=== PATIENT | female | born 1965 | race African-American/Black ===

== ENCOUNTER 2017-03-05 15:58 | Emergency (ER) | payer MEDICARE ==
[~2017-03-05] VITALS: Ht 154.9 cm; Wt 81.6 kg
[~2017-03-05 15:58] MED LIST: ALBU2.5V14 IH; CELE200C PO; COLE1TAB PO; FLUT10.6 IH; FLUT16SP2 NS; HYDR12.53 PO; HYDR200T PO; LORA10TA3 PO; OXYC1TAB8 PO; PREG225C PO; PROAIR HFA8.5 GM IH; PSYL1WAF3 PO; ROPI0.252 PO; SODI500S4 PO; SULF500T7 PO; TIZA4TAB PO; TOPI50TA8 PO; TRAM50TA PO
[2017-03-05] MEDS ORDERED: IV NORMAL SALINE 1000ML BAG 1,000 ML IV SCH (16:59)
[2017-03-05 17:37] LABS: BASO % 1 % (0-3); EOS % 1 % (0-3); LYMPH # 1.7 x10^3/uL (1.0-4.8); LYMPH % 30 % (24-48); MEAN CORPUSCULAR HEMOGLOBIN 25 pg (25-35); MEAN CORPUSCULAR HGB CONC 32 g/dL (31-37); MEAN CORPUSCULAR VOLUME 77 fL (79-100); MONO % 8 % (0-9); NEUT % 60 % (31-73); PLATELET COUNT 150 x10^3/uL (140-400); RED CELL DISTRIBUTION WIDTH 15.1 % (11.5-14.5); WHITE BLOOD COUNT 5.9 x10^3/uL (4.0-11.0)
--- NOTE | 2017-03-05 17:41 | PHYS DOC ---
Past Medical History Past Medical History: Asthma, Bronchitis, Fibromyalgia, GERD Additional Past Medical Histor: narcolepsy, bursitis IN BILATERAL HIPS Past Surgical History: Colectomy, Hip Replacement, Hysterectomy Additional Past Surgical Histo: colon resection x 2, back surgery, right ankle ORIF w/ removal hardware Alcohol Use: None Drug Use: None Adult General Chief Complaint Chief Complaint: DIZZY/LIGHT HEADED HPI HPI Patient is a 51 year old female who presents ambulatory to the ED with the complaint of dizziness and left arm tingling. Patient has had dizziness for a few days. It's worse with standing. It is fairly constant. She's also had some tingling of her left arm. No chest pain. She states she's been drinking plenty of water. She doesn't believe she would be dehydrated. She's had no nausea, vomiting. She does have loose stools because she does not have a colon. Her small intestine is connected to her rectum. This is due to colon removal surgery in 2002 in 2007 which was done because her colon didn't work ever since she was a baby. She has not had colon cancer. She denies bloody stools. Patient has a history of fibromyalgia, narcolepsy, no cardiac history. She uses CPAP for her narcolepsy. She is disabled due to her fibromyalgia. Review of Systems Review of Systems Constitutional: Denies fever or chills [] Eyes: Denies change in visual acuity, redness, or eye pain [] HENT: Denies nasal congestion or sore throat [] Respiratory: Denies cough or shortness of breath [] Cardiovascular: Denies chest pain, see left arm symptoms in history of present illness GI: Denies abdominal pain, nausea, vomiting, bloody stools or diarrhea however chronically has loose stools due to having no: : Denies dysuria or hematuria [] Musculoskeletal: Denies back pain or joint pain [] Integument: Denies rash or skin lesions [] Neurologic: Denies headache, focal weakness or sensory changes [] Current Medications Current Medications Current Medications Medications (Trade) Dose Ordered Sig/Minh Start Time Stop Time Status Last Admin Dose Admin Sodium Chloride 1,000 ml @ 1,000 mls/hr Q1H 03/05/17 16:59 03/05/17 17:58 DC 03/05/17 17:33 1,000 MLS/HR Allergies Allergies Allergies Coded Allergies Type Severity Reaction Last Updated Verified Iodinated Contrast Media - Oral and Allergy Intermediate Unknown 01/10/16 Yes Penicillins Allergy Intermediate Rash 01/10/16 Yes codeine Allergy Intermediate Rash 01/10/16 Yes methylprednisolone Allergy Intermediate Itching 01/10/16 Yes Physical Exam Physical Exam Constitutional: Well developed, well nourished, no acute distress, non-toxic appearance. Alert, mentating normally, vital signs stable. HENT: Normocephalic, atraumatic, bilateral external ears normal, nose normal. [ ] Eyes: conjunctiva normal, no discharge. [] Neck: Normal range of motion, no stridor. [] Cardiovascular:Heart rate regular rhythm, no murmur , nontachycardiac Lungs & Thorax: Bilateral breath sounds clear to auscultation [] Abdomen: Bowel sounds normal, soft, no tenderness, no masses, no pulsatile masses. [] Skin: Warm, dry, no erythema, no rash. [] Extremities: No tenderness, no cyanosis, no clubbing, ROM intact, no edema. [] Neurologic: Alert and oriented X 3, normal motor function, normal sensory function, no focal deficits noted. [] Current Patient Data Vital Signs Vital Signs Date Time Temp Pulse Resp B/P (MAP) Pulse Ox O2 Delivery O2 Flow Rate FiO2 03/05/17 18:27 61 20 121/79 (93) 99 Room Air 03/05/17 16:34 98.7 98.7 Lab Values Laboratory Tests Test 03/05/17 17:17 White Blood Count 5.9 x10^3/uL (4.0-11.0) Red Blood Count 4.40 x10^6/uL (3.50-5.40) Hemoglobin 11.0 g/dL (12.0-15.5) L Hematocrit 34.0 % (36.0-47.0) L Mean Corpuscular Volume 77 fL (79-100) L Mean Corpuscular Hemoglobin 25 pg (25-35) Mean Corpuscular Hemoglobin Concent 32 g/dL (31-37) Red Cell Distribution Width 15.1 % (11.5-14.5) H Platelet Count 150 x10^3/uL (140-400) Neutrophils (%) (Auto) 60 % (31-73) Lymphocytes (%) (Auto) 30 % (24-48) Monocytes (%) (Auto) 8 % (0-9) Eosinophils (%) (Auto) 1 % (0-3) Basophils (%) (Auto) 1 % (0-3) Neutrophils # (Auto) 3.5 x10^3uL (1.8-7.7) Lymphocytes # (Auto) 1.7 x10^3/uL (1.0-4.8) Monocytes # (Auto) 0.5 x10^3/uL (0.0-1.1) Eosinophils # (Auto) 0.1 x10^3/uL (0.0-0.7) Basophils # (Auto) 0.0 x10^3/uL (0.0-0.2) Sodium Level 142 mmol/L (136-145) Potassium Level 4.5 mmol/L (3.5-5.1) Chloride Level 107 mmol/L (98-107) Carbon Dioxide Level 26 mmol/L (21-32) Anion Gap 9 (6-14) Blood Urea Nitrogen 12 mg/dL (7-20) Creatinine 1.1 mg/dL (0.6-1.0) H Estimated GFR (Cockcroft-Gault) 63.9 BUN/Creatinine Ratio 11 (6-20) Glucose Level 100 mg/dL (70-99) H Calcium Level 9.5 mg/dL (8.5-10.1) Total Bilirubin 0.2 mg/dL (0.2-1.0) Aspartate Amino Transferase (AST) 18 U/L (15-37) Alanine Aminotransferase (ALT) 22 U/L (14-59) Alkaline Phosphatase 108 U/L (46-116) Troponin I Quantitative < 0.017 ng/mL (0.000-0.055) Total Protein 7.6 g/dL (6.4-8.2) Albumin 3.6 g/dL (3.4-5.0) Albumin/Globulin Ratio 0.9 (1.0-1.7) L Laboratory Tests 03/05/17 17:17 Laboratory Tests 03/05/17 17:17 EKG EKG 12-lead EKG read by me. Sinus rhythm. Heart rate 62. There are no acute ST or T wave changes indicative of ischemia or infarction. No STEMI. 1644 [] Radiology/Procedures Radiology/Procedures One view portable chest x-ray read by me. Heart size is normal. Lung bruno are clear. No acute cardiopulmonary abnormality. [] Course & Med Decision Making Course & Med Decision Making Pertinent Labs and Imaging studies reviewed. (See chart for details) 51-year-old female with a history of narcolepsy, fibromyalgia, also a total colectomy so her stools are always loose, presents with several days of lightheaded type dizziness and newly some tingling of her left arm. No chest pain. We will check some labs, EKG, and give her some fluids. She is agreeable to that plan. Patient rested comfortably and remained stable in the ED. She got a liter of IV fluids. She visited with the family member at the bedside. Labs, chest x-ray, EKG unremarkable. Her complaints are nonspecific and I believe she is stable for discharge. See instructions for plan. [] Dragon Disclaimer Dragon Disclaimer This electronic medical record was generated, in whole or in part, using a voice recognition dictation system. Departure Departure Impression: Primary Impression: Dehydration Additional Impression: Left arm numbness Disposition: 01 HOME, SELF-CARE Condition: STABLE Referrals: JERRI LIM (PCP) Patient Instructions: Dehydration, Adult, [id number] Additional Instructions: Today in the ER, tests did not show any serious cause of your symptoms. If your left arm numbness continues, follow up with your doctor. Be sure you're drinking plenty of fluids to stay hydrated especially in the heat. Problem Qualifiers ROQUE VELIZ MD Mar 05, 2017 17:41
[2017-03-05 17:47] LABS: CALCIUM 9.5 mg/dL (8.5-10.1); CREATININE 1.1 mg/dL (0.6-1.0); GFR 63.9; POTASSIUM 4.5 mmol/L (3.5-5.1)
[2017-03-05 17:53] LABS: ALBUMIN 3.6 g/dL (3.4-5.0); ALBUMIN/GLOBULIN RATIO 0.9 (1.0-1.7); TOTAL BILIRUBIN 0.2 mg/dL (0.2-1.0); TOTAL PROTEIN 7.6 g/dL (6.4-8.2)
[2017-03-05 18:27] VITALS: BP 121/79
--- NOTE | 2017-03-06 00:39 | EKG ---
[facility] [address] [place] [address] Test Date: 2017-03-05 Test Time: 16:44:06 Pat Name: MANJINDER OKEEFE Department: Room: Gender: F Installation Specialist: : [id number] Requested By: ROQUE VELIZ Order Number: [id number] Reading MD: Albert Hoyos Measurements Intervals [place] Rate: 62 P: 54 [place]: 136 QRS: 2 QRSD: 76 T: 32 QT: 422 QTc: 431 Interpretive Statements SINUS RHYTHM T ABNORMALITY IN ANTERIOR LEADS ABNORMAL ECG RI6.01 Compared to ECG 06/14/2016 14:04:37 T-wave abnormality now present Right-axis deviation no longer present Myocardial infarct finding no longer present Electronically Signed On 03-06-2017 17:03:16 CDT by Albert Hoyos
--- NOTE | 2017-03-06 08:11 | RAD ---
Portable chest, 03/05/2017: History: Chest pain, arm tingling Comparison is made to a study from 06/13/2016. The heart is at the upper limits of normal in size. The pulmonary vascularity is normal. No pulmonary infiltrates are seen. There is no evidence of pleural fluid. IMPRESSION: No acute cardiopulmonary abnormality is detected.
== END 2017-03-05 18:55 | disposition home or self-care (01) ==
LOC: ER 15:58
DX: E86.0 Dehydration (principal); R20.0 Anesthesia of skin; J45.909 Unspecified asthma, uncomplicated; K21.9 Gastro-esophageal reflux disease without esophagitis; M79.7 Fibromyalgia; Z90.710 Acquired absence of both cervix and uterus; Z98.890 Other specified postprocedural states; Z96.649 Presence of unspecified artificial hip joint; Z88.0 Allergy status to penicillin; Z88.5 Allergy status to narcotic agent; Z91.041 Radiographic dye allergy status; Z88.8 Allergy status to other drugs, medicaments and biological substances
CPT/HCPCS: 36415; 71010; 80053; 84484; 85027; 93005; 96360; 99285; J7030

== ENCOUNTER → 2017-07-20 | Outpatient (CLI) | payer MEDICARE ==
[~2017-07-20] MED LIST changes: +METAMUCIL FIBE1 EACH PO; -PSYL1WAF3 PO
--- NOTE | 2017-07-20 13:56 | KCIC ---
MRI Cervical Spine Without Contrast History: Stenosis, bilateral upper extremity numbness in recent months Technique: Multiplanar, multi sequential noncontrast MR imaging was performed of the cervical spine. Comparison: None Findings: Cervical cord caliber is within normal limits without convincing focal signal abnormality. No significant abnormality of the cervical medullary junction. Cervical vertebral body stature is preserved. There is no significant marrow edema. Intervertebral disc spaces are relatively maintained. AP alignment is adequate. C2-C3: Spinal canal and the neural foramina are adequate. C3-C4: Neural foramina and spinal canal are adequate. C4-C5: Spinal canal and neural foramina are adequate. C5-C6: Spinal canal and neural foramina are adequate. C6-C7: Spinal canal and neural foramina are adequate. C7-T1: Neural foramina and spinal canal are adequate. Impression: 1. There is no significant cervical spinal stenosis or neural foramina compromise. Electronically signed by: Joey Montiel MD (07/20/2017 1:53 PM) [email or web address]
--- NOTE | 2017-07-20 14:05 | KCIC ---
MRI Lumbar Spine without contrast History: Stenosis, previous surgery, left leg pain and numbness Technique: Multiplanar, multi sequential noncontrast MR imaging was performed of the lumbar spine. Contrast: None Comparison: 05/11/2014 Findings: Vertebral body stature and AP alignment are unchanged, within normal limits. There is again mild to moderate degenerative disc disease greater posteriorly at L4-5. There is nonspecific edema of the posterior subcutaneous fat of the lower back. Conus terminates at T12. There is no significant marrow edema. Barely included, there is T2 hyperintense lesion of the visualized right kidney as seen on sagittal images up to 3.3 cm, likely cyst. L1-L2: There is again very shallow posterior bulge/protrusion. Spinal canal and neural foramina are adequate. L2-L3: Spinal canal and neural foramina are adequate. There is mild buckling of the ligamentum flavum and facet degenerative change. L3-L4: Spinal canal and neural foramina are adequate. There is mild facet hypertrophic change and buckling of the ligamentum flavum. L4-L5: There is again right laminectomy defect. There is left facet hypertrophic change. There is again some signal change along the posterior annular margin which may be in part from fibrosis. However there is somewhat more prominent signal abnormality in the inferior right neural foramen probably due to component of superimposed protrusion/contained extrusion up to 4 mm AP by 6 mm CC. There is slightly increased [id number] narrowing of the inferior right neural foramen, left neural foramen adequate. There is similar mild narrowing of the far lateral recesses. L5-S1: Spinal canal and neural foramina are adequate. Impression: 1. Comparing with the 2013 exam, there is somewhat more prominent signal abnormality in the inferior right neural foramen which may be due to component of protrusion/contained extrusion, slightly increased mild to moderate narrowing of the right neural foramen. There is again degenerative disc disease at L4-5. There is no new significant lumbar spinal stenosis, mild narrowing of the far lateral recesses at L4-5 as seen previously. Electronically signed by: Joey Montiel MD (07/20/2017 2:01 PM) [facility]
== END | disposition home or self-care (01) ==
LOC: KCIC MRI 12:27
PROVIDERS: ATTEND Neurological Surgery
DX: M48.02 Spinal stenosis, cervical region (principal); M51.36 Other intervertebral disc degeneration, lumbar region; R20.0 Anesthesia of skin
CPT/HCPCS: 72141; 72148

== ENCOUNTER → 2018-05-08 | Outpatient (CLI) | payer MEDICARE ==
[~2018-05-08] MED LIST changes: -HYDR200T PO; +HYDR200T71 PO; -ROPI0.252 PO; +ROPI0.254 PO
--- NOTE | 2018-05-08 11:18 | KCIC ---
MR of the left hip Indication: Left hip pain, chronic. Technique: Standard multiplanar sequences are obtained. Findings: Artifact: No significant image degradation. Bones: No bone lesion, acute fracture or acute bone marrow edema. No femoral head osteonecrosis. Effusion: No significant effusion Joint: No advanced primary osteoarthritis. Labrum: No evidence of labral tear or para labral cyst Gluteus minimus tendon: Intact Gluteus medius tendon: Intact Hamstring tendon: Intact Iliopsoas tendon: Intact Rectus femoris tendon attachment:Intact Soft tissue:No significant acute findings. Coronal survey STIR sequence inclusive of the contralateral hip demonstrates a right hip replacement with metal artifact. Impression:No acute findings or evidence of internal derangement of the left hip. Electronically signed by: Bayron Crabtree MD (05/08/2018 11:14 AM) [facility]
== END | disposition home or self-care (01) ==
LOC: KCIC MRI 09:11
PROVIDERS: ATTEND Anesthesiology Pain Medicine
DX: M25.552 Pain in left hip (principal)
CPT/HCPCS: 73721

== ENCOUNTER 2018-09-27 19:29 | Emergency (ER) | payer MEDICARE ==
[~2018-09-27] VITALS: Ht 154.9 cm; Wt 97.5 kg
[~2018-09-27 19:29] MED LIST changes: +ALBU2.5V8 IH; -HYDR12.53 PO; +HYDR12.575 PO; -PROAIR HFA8.5 GM IH
[2018-09-27] MEDS ORDERED: MECLIZINE HCL 12.5 MG TABLET. PO ONE (20:15)
[2018-09-27] MEDS ORDERED: ONDANSETRON PF 4 MG/2 ML VIAL. IV ONE (20:15)
[2018-09-27] MEDS ORDERED: IV NORMAL SALINE 1000ML BAG 1,000 ML IV ONE (20:15)
[2018-09-27 20:24] LABS: BASO % 1 % (0-3); EOS # 0.1 x10^3/uL (0.0-0.7); EOS % 1 % (0-3); HEMATOCRIT 35.8 % (36.0-47.0); HEMOGLOBIN 11.3 g/dL (12.0-15.5); LYMPH # 1.8 x10^3/uL (1.0-4.8); LYMPH % 25 % (24-48); MEAN CORPUSCULAR HEMOGLOBIN 27 pg (25-35); MEAN CORPUSCULAR HGB CONC 32 g/dL (31-37); MEAN CORPUSCULAR VOLUME 84 fL (79-100); MONO # 0.5 x10^3/uL (0.0-1.1); MONO % 7 % (0-9); NEUT # 4.8 x10^3uL (1.8-7.7); NEUT % 67 % (31-73); PLATELET COUNT 171 x10^3/uL (140-400); RED BLOOD COUNT 4.27 x10^6/uL (3.50-5.40); RED CELL DISTRIBUTION WIDTH 14.4 % (11.5-14.5); WHITE BLOOD COUNT 7.2 x10^3/uL (4.0-11.0)
[2018-09-27 20:26] LABS: BILIRUBIN,URINE NEGATIVE (NEG); CLARITY,URINE CLEAR; COLOR,URINE YELLOW; NITRITE,URINE NEGATIVE (NEG); PROTEIN,URINE NEGATIVE (NEG-TRACE); UROBILINOGEN,URINE 0.2 mg/dL (0.2 mg/dL)
[2018-09-27 20:29] LABS: SQUAMOUS EPITHELIAL CELL,UR MOD /LPF
[2018-09-27 20:30] LABS: BACTERIA,URINE MANY /HPF (0-FEW); RBC,URINE 0 /HPF (0-2); WBC,URINE OCC /HPF (0-4)
[2018-09-27 20:31] LABS: AMPHETAMINE/METHAMPHETAMINE NEG (NEG); BARBITURATES NEG (NEG); BENZODIAZEPINES NEG (NEG); CANNABINOIDS NEG (NEG); COCAINE NEG (NEG); METHADONE NEG (NEG); OPIATES NEG (NEG); PHENCYCLIDINE NEG (NEG)
[2018-09-27 20:33] LABS: PROTHROMBIN TIME PATIENT 13.6 SEC (11.7-14.0)
[2018-09-27 20:36] LABS: CALCIUM 9.1 mg/dL (8.5-10.1); CREATININE 1.2 mg/dL (0.6-1.0); GFR 57.3
[2018-09-27 20:47] LABS: INFLUENZA A PATIENT NEGATIVE (NEGATIVE); INFLUENZA B PATIENT NEGATIVE (NEGATIVE)
[2018-09-27 20:48] LABS: ALBUMIN 3.5 g/dL (3.4-5.0); ALBUMIN/GLOBULIN RATIO 0.6 (1.0-1.7); MAGNESIUM 1.9 mg/dL (1.8-2.4); TOTAL BILIRUBIN 0.2 mg/dL (0.2-1.0); TOTAL PROTEIN 8.9 g/dL (6.4-8.2)
--- NOTE | 2018-09-27 23:29 | RAD ---
PQRS Compliance Statement: One or more of the following individualized dose reduction techniques were utilized for this examination: 1. Automated exposure control 2. Adjustment of the mA and/or kV according to patient size 3. Use of iterative reconstruction technique CT head without contrast 09/27/2018 9:45 PM INDICATION: Dizziness COMPARISON: None available TECHNIQUE: Multiple axial CT images of the head were obtained from skull base through the vertex without intravenous contrast. FINDINGS: Head: Ventricles, sulci and basal cisterns are within normal limits. There is no hydrocephalus. Jules-white matter differentiation is normal. There is no acute intracranial hemorrhage. There is no mass, mass effect or midline shift. Posterior fossa is normal in appearance. Visualized portions of the orbits are normal. Paranasal sinuses are well aerated. Mastoid air cells are well aerated. Scalp and calvaria are normal. IMPRESSION: No acute intracranial hemorrhage. Electronically signed by: Tawana Brennan MD (09/27/2018 11:26 PM) [facility]
[2018-09-28 00:27] VITALS: BP 111/70
--- NOTE | 2018-09-28 00:33 | PHYS DOC ---
Past Medical History Past Medical History: Asthma, Bronchitis, Fibromyalgia, GERD Additional Past Medical Histor: narcolepsy, bursitis IN BILATERAL HIPS Past Surgical History: Colectomy, Hip Replacement, Hysterectomy Additional Past Surgical Histo: colon resection x 2, back surgery, right ankle ORIF w/ removal hardware Alcohol Use: None Drug Use: None Adult General Chief Complaint Chief Complaint: DIZZY/LIGHT HEADED HPI HPI Patient is a 53 year old female with hx of fibromyalgia, GERD, who presents with dizziness, chills, and numbness to fingers bilaterally, symptoms since Sunday which is almost a week ago. Patient denies anything specifically exacerbating or relieving her dizziness. She states the dizziness is intermittent. She states the numbness and tingling to the fingers is also intermittent. Denies any cough or congestion. Denies any headache. Denies any chest pain or shortness of breath. Review of Systems Review of Systems Constitutional: Denies fever or chills [] Eyes: Denies change in visual acuity, redness, or eye pain [] HENT: Denies nasal congestion or sore throat [] Respiratory: Denies cough or shortness of breath [] Cardiovascular: No additional information not addressed in HPI [] GI: Denies abdominal pain, nausea, vomiting, bloody stools or diarrhea [] : Denies dysuria or hematuria [] Musculoskeletal: Denies back pain or joint pain [] Integument: Denies rash or skin lesions [] Neurologic: Denies headache, focal weakness or sensory changes [] Endocrine: Denies polyuria or polydipsia [] All other systems were reviewed and found to be within normal limits, except as documented in this note. Current Medications Current Medications Current Medications Medications (Trade) Dose Ordered Sig/Minh Start Time Stop Time Status Last Admin Dose Admin Meclizine HCl (Antivert) 25 mg 1X ONCE 09/27/18 20:15 09/27/18 20:16 DC 09/27/18 21:03 25 MG Ondansetron HCl (Zofran) 4 mg 1X ONCE 09/27/18 20:15 09/27/18 20:16 DC 09/27/18 21:03 4 MG Sodium Chloride 1,000 ml @ 1,000 mls/hr 1X ONCE 09/27/18 20:15 09/27/18 21:14 DC 09/27/18 21:04 1,000 MLS/HR Allergies Allergies Allergies Coded Allergies Type Severity Reaction Last Updated Verified Iodinated Contrast- Oral and IV Dye Allergy Intermediate Unknown 01/10/16 Yes Penicillins Allergy Intermediate Rash 01/10/16 Yes codeine Allergy Intermediate Rash 01/10/16 Yes methylprednisolone Allergy Intermediate Itching 01/10/16 Yes Physical Exam Physical Exam Constitutional: Well developed, well nourished, no acute distress, non-toxic appearance. [] HENT: Normocephalic, atraumatic, bilateral external ears normal, oropharynx moist, no oral exudates, nose normal. [] Eyes: PERRLA, EOMI, conjunctiva normal, no discharge. [] Neck: Normal range of motion, no tenderness, supple, no stridor. [] Cardiovascular:Heart rate regular rhythm, no murmur [] Lungs & Thorax: Bilateral breath sounds clear to auscultation [] Abdomen: Bowel sounds normal, soft, no tenderness, no masses, no pulsatile masses. [] Skin: Warm, dry, no erythema, no rash. [] Back: No tenderness, no CVA tenderness. [] Extremities: No tenderness, no cyanosis, no clubbing, ROM intact, no edema. [] Neurologic: Alert and oriented X 3, normal motor function, normal sensory function, no focal deficits noted. [] Psychologic: Affect normal, judgement normal, mood normal. [] Current Patient Data Vital Signs Vital Signs Date Time Temp Pulse Resp B/P (MAP) Pulse Ox O2 Delivery O2 Flow Rate FiO2 09/28/18 00:27 78 98 09/27/18 19:35 97.4 22 134/86 (102) Room Air 97.4 Lab Values Laboratory Tests Test 09/27/18 19:35 09/27/18 19:49 09/27/18 20:05 09/27/18 20:10 Urine Collection Type Unknown Urine Color Yellow Urine Clarity Clear Urine pH 6.0 Urine Specific [place] <=1.005 Urine Protein Negative mg/dL (NEG-TRACE) Urine Glucose (UA) Negative mg/dL (NEG) Urine Ketones (Stick) Negative mg/dL (NEG) Urine Blood Negative (NEG) Urine Nitrite Negative (NEG) Urine Bilirubin Negative (NEG) Urine Urobilinogen Dipstick 0.2 mg/dL (0.2 mg/dL) Urine Leukocyte Esterase Trace (NEG) Urine RBC 0 /HPF (0-2) Urine WBC Occ /HPF (0-4) Urine Squamous Epithelial Cells Mod /LPF Urine Bacteria Many /HPF (0-FEW) Urine Opiates Screen Neg (NEG) Urine Methadone Screen Neg (NEG) Urine Barbiturates Neg (NEG) Urine Phencyclidine Screen Neg (NEG) Urine Amphetamine/Methamphetamine Neg (NEG) Urine Benzodiazepines Screen Neg (NEG) Urine Cocaine Screen Neg (NEG) Urine Cannabinoids Screen Neg (NEG) Urine Ethyl Alcohol Neg (NEG) POC Urine HCG, Qualitative Hcg negative (Negative) White Blood Count 7.2 x10^3/uL (4.0-11.0) Red Blood Count 4.27 x10^6/uL (3.50-5.40) Hemoglobin 11.3 g/dL (12.0-15.5) L Hematocrit 35.8 % (36.0-47.0) L Mean Corpuscular Volume 84 fL (79-100) Mean Corpuscular Hemoglobin 27 pg (25-35) Mean Corpuscular Hemoglobin Concent 32 g/dL (31-37) Red Cell Distribution Width 14.4 % (11.5-14.5) Platelet Count 171 x10^3/uL (140-400) Neutrophils (%) (Auto) 67 % (31-73) Lymphocytes (%) (Auto) 25 % (24-48) Monocytes (%) (Auto) 7 % (0-9) Eosinophils (%) (Auto) 1 % (0-3) Basophils (%) (Auto) 1 % (0-3) Neutrophils # (Auto) 4.8 x10^3uL (1.8-7.7) Lymphocytes # (Auto) 1.8 x10^3/uL (1.0-4.8) Monocytes # (Auto) 0.5 x10^3/uL (0.0-1.1) Eosinophils # (Auto) 0.1 x10^3/uL (0.0-0.7) Basophils # (Auto) 0.0 x10^3/uL (0.0-0.2) Prothrombin Time 13.6 SEC (11.7-14.0) Prothrombin Time INR 1.1 (0.8-1.1) Sodium Level 139 mmol/L (136-145) Potassium Level 4.0 mmol/L (3.5-5.1) Chloride Level 101 mmol/L (98-107) Carbon Dioxide Level 28 mmol/L (21-32) Anion Gap 10 (6-14) Blood Urea Nitrogen 12 mg/dL (7-20) Creatinine 1.2 mg/dL (0.6-1.0) H Estimated GFR (Cockcroft-Gault) 57.3 BUN/Creatinine Ratio 10 (6-20) Glucose Level 111 mg/dL (70-99) H Calcium Level 9.1 mg/dL (8.5-10.1) Magnesium Level 1.9 mg/dL (1.8-2.4) Total Bilirubin 0.2 mg/dL (0.2-1.0) Aspartate Amino Transferase (AST) 74 U/L (15-37) H Alanine Aminotransferase (ALT) 137 U/L (14-59) H Alkaline Phosphatase 126 U/L (46-116) H Creatine Kinase 135 U/L (26-192) Creatine Kinase MB (Mass) 0.5 ng/mL (0.0-3.6) Creatine Kinase MB Relative Index 0.4 % (0-4) Troponin I Quantitative < 0.017 ng/mL (0.000-0.055) AG-Pen-U-Type Natriuretic Peptide 20 pg/mL (0-124) Total Protein 8.9 g/dL (6.4-8.2) H Albumin 3.5 g/dL (3.4-5.0) Albumin/Globulin Ratio 0.6 (1.0-1.7) L Lipase 153 U/L (73-393) Thyroid Stimulating Hormone (TSH) 2.735 uIU/mL (0.358-3.74) Influenza Type A Antigen Negative (NEGATIVE) Influenza Type B Antigen Negative (NEGATIVE) Laboratory Tests 09/27/18 20:05 Laboratory Tests 09/27/18 20:05 EKG EKG [] Radiology/Procedures Radiology/Procedures [] Course & Med Decision Making Course & Med Decision Making Pertinent Labs and Imaging studies reviewed. (See chart for details) This is a 53-year-old female patient presenting to the ED today with dizziness, numbness to the fingers bilaterally and chills. Patient's workup is negative, she was given IV fluids, meclizine, she is up ambulating with no difficulties, symptoms of subsided. Discharged with instructions to follow-up PCP and neurologist next week. Dragon Disclaimer Dragon Disclaimer This electronic medical record was generated, in whole or in part, using a voice recognition dictation system. Departure Departure Impression: Primary Impression: Dizziness Disposition: 01 HOME, SELF-CARE Condition: STABLE Referrals: JERRI LIM (PCP) follow up next week Patient Instructions: Dizziness, Paresthesia Additional Instructions: You were seen for dizziness. Please follow up with your doctor next week. Come back to the ED at any point symptoms worsen. Scripts Meclizine Hcl (MECLIZINE HCL) 25 Mg Tablet 1 TAB PO TID, #20 TAB Prov: NAYAN CHERRY APRN 09/28/18 NAYAN CHERRY APRN Sep 28, 2018 00:33
[2018-09-28] MEDS ORDERED: MECL25TA3 PO (01:12)
--- NOTE | 2018-09-28 07:42 | RAD ---
PROCEDURE: PORTABLE CHEST 1V CLINICAL INDICATION: Dizzy COMPARISON: None FINDINGS: No pneumothorax identified. Cardiac and mediastinal contours unremarkable. No pulmonary consolidation or acute airspace disease. No acute osseous abnormalities identified. IMPRESSION: No pulmonary consolidation or acute airspace disease. Electronically signed by: Sedrick Cotton DO (09/28/2018 7:39 AM) [facility]
--- NOTE | 2018-09-28 14:49 | EKG ---
[facility] [address] [place] [address] Test Date: 2018-09-27 Test Time: 21:11:39 Pat Name: MANJINDER OKEEFE Department: Room: Gender: F Pouncer Machine: : [id number] Requested By: NAYAN CHERRY Order Number: [id number] Reading MD: Frankie Resendiz Measurements Intervals [place] Rate: 80 P: 29 [place]: 140 QRS: 0 QRSD: 74 T: 31 QT: 378 QTc: 440 Interpretive Statements SINUS RHYTHM LEFTWARD AXIS Electronically Signed On 10-08-2018 10:28:09 [employer] by Frankie Resendiz
== END 2018-09-28 01:20 | disposition home or self-care (01) ==
LOC: ER 19:29
DX: R42 Dizziness and giddiness (principal); R20.0 Anesthesia of skin; K21.9 Gastro-esophageal reflux disease without esophagitis; J45.909 Unspecified asthma, uncomplicated; Z90.710 Acquired absence of both cervix and uterus; Z90.49 Acquired absence of other specified parts of digestive tract; Z88.0 Allergy status to penicillin; Z88.5 Allergy status to narcotic agent; Z91.041 Radiographic dye allergy status
CPT/HCPCS: 36415; 70450; 71045; 80053; 80307; 81001; 81025; 82553; 83690; 83735; 83880; 84443; 84484; 85025; 85610; 87086; 87804; 93005; 96361; 96374; 99285; J2405; J7030; J8597; 99284-25

== ENCOUNTER → 2021-01-27 | Outpatient (CLI) | payer MEDICARE ==
[~2021-01-27] MED LIST changes: +GADOTERATE 7.5 MMOL/15ML VIAL. IVP ONE; +MECL-75 PO; -TIZA4TAB PO; +TIZA4TAB2 PO
--- NOTE | 2021-01-27 10:04 | KCIC ---
EXAM: Cervical spine MRI without contrast. HISTORY: Cervical radiculopathy. TECHNIQUE: Multiplanar, multisequence magnetic resonance imaging of the cervical spine was performed without contrast. COMPARISON: 07/20/2017. FINDINGS: There is no listhesis. The vertebral bodies are normal in height. There is no fracture or s uspicious osseous lesion. No spinal cord lesion is seen. The skull base and posterior fossa are unrem arkable. There is no significant foraminal or central canal stenosis. IMPRESSION: No acute finding or significant foraminal or central canal stenosis. Electronically signed by: Danae Garcia MD (01/27/2021 10:01 AM) [id number]
--- NOTE | 2021-01-27 10:46 | KCIC ---
EXAM: Lumbar spine MRI without and with contrast. HISTORY: Lower back pain. Left lower extremity radiculopathy. TECHNIQUE: Multiplanar, multisequence magnetic resonance imaging of the lumbar spine was performed wi thout and with contrast. COMPARISON: 07/18/2017 FINDINGS: There is mild lumbar scoliosis. There is degenerative endplate remodeling with disc space n arrowing, osteophytosis and disc desiccation at L4-L5. There is also slight disc space narrowing and disc desiccation at L1-L2. There are few osseous hemangiomas. There is no fracture or suspicious osse ous lesion. The conus terminates at T12. The L5 segment is partially sacralized. The sacralized left L5 transverse process articulates with the underlying sacrum, a normal variant. There are hemilaminec stephen changes at L4-L5, described in detail below. The postcontrast images demonstrate a 4 mm x 2 mm focus of increased signal on postcontrast images wi thin the right lateral central canal at L3-L4 on axial images. This demonstrated is no convincing cor relate on sagittal images or additional imaging series, favoring artifact. No convincing suspicious e nhancing lesion is seen. At L1-L2, there is a small right paracentral disc protrusion. There is no stenosis. At L2-L3, there is no stenosis. At L3-L4, there is mild left greater than right facet arthropathy. There is no stenosis. At L4-L5, there is a broad-based right lateral recess to extra foraminal disc protrusion with 3 mm romano perior and inferior extrusion superimposed on a disc bulge and right lateral predominant endplate ost eophytosis. There are right hemilaminectomy changes. There is effacement of the right lateral recess and abutment the traversing right L5 nerve root likely due to the aforementioned disc protrusion and scar/granulation tissue. There is moderate right foraminal stenosis with abutment of the exiting righ t L4 nerve root. There is mild central canal stenosis. At L5-S1, there is lateral endplate osteophytosis. There is no stenosis. IMPRESSION: 1. L4-L5: Right hemilaminectomy and suspected microdiscectomy changes. There is a broad-based right l ateral recess to extra foraminal disc protrusion with slight extrusion superimposed on a disc bulge a nd right lateral predominant endplate osteophytosis at this level. The combination of this finding an d possible scar/granulation tissue within the right lateral recess contributes to moderate right fora mary stenosis and abutment of the exiting right L4 nerve root, effacement of the right lateral reces s and abutment the traversing right L5 nerve root and mild central canal stenosis. This is similar co mpared to the prior exam. 2. Mild degenerative change throughout the remainder of the lumbar spine, without significant stenosi s. Electronically signed by: Danae Garcia MD (01/27/2021 10:43 AM) [id number]
== END ==
LOC: KCIC MRI 08:42
PROVIDERS: ATTEND Orthopaedic Surgery
DX: M51.26 Other intervertebral disc displacement, lumbar region (principal); M47.816 Spondylosis without myelopathy or radiculopathy, lumbar region; M48.061 Spinal stenosis, lumbar region without neurogenic claudication
CPT/HCPCS: 72141; 72158; A9575

== ENCOUNTER → 2021-02-14 | Outpatient (CLI) | payer MEDICARE ==
[~2021-02-14] MED LIST changes: +CONTRAST GIVEN. MC PRN; -GADOTERATE 7.5 MMOL/15ML VIAL. IVP ONE; +IOHEXOL 180 MG/ML 10 ML VIAL. IJ ONE; +LIDOCAINE 1% Multi-Dose 20 ML VIAL. INJ ONE
--- NOTE | 2021-02-14 10:44 | RAD ---
EXAM: Fluoroscopic guided lumbar puncture for CT myelography; lumbar spine CT myelogram. HISTORY: 55-year-old female presents with back and hip pain. TECHNIQUE: The risks of the procedure discussed with the patient and written and verbal consent was o btained. A timeout was performed. The patient was placed in a prone position on the fluoroscopy table and a site overlying L4-L5 was selected for needle entry. The skin overlying this region was sterile ly prepped, draped and infiltrated with 1 percent lidocaine. A 25-gauge needle was advanced into the thecal sac and appropriate needle tip position was confirmed with spontaneous yield of cerebral spina l fluid within the needle hub. 15 cc of Omnipaque 180 intrathecal contrast was then injected into the thecal sac. The needle was removed and a sterile bandage was placed at the needle entry site. Standi ng upright neutral, flexion and extension and prone lateral images were obtained. The patient was the n transferred to the CT suite for the post injection CT portion of the exam. 4 fluoroscopic images we re obtained for a total fluoroscopy time of 0.8 minutes. The patient tolerated the procedure without difficulty and was discharged in stable condition. *One or more of the following individualized dose reduction techniques were utilized for this examina tion: 1. Automated exposure control. 2. Adjustment of the mA and/or kV according to patient size. 3. Use of iterative reconstruction technique. COMPARISON: MRI performed 01/27/2021. FINDINGS: There is mild levoscoliosis centered at L4-L5. There is no significant listhesis. There is sacralization of the L5 vertebral segment with rudimentary L5-S1 disc. There is pseudoarticulation of the sacralized left greater than right L5 transverse processes with the underlying sacrum. There is degenerative endplate remodeling with disc space narrowing, osteophytosis and vacuum phenome non at L4-L5. There is also endplate remodeling with osteophytosis and disc space narrowing at L5-S1. There is no fracture or suspicious osseous lesion. The conus terminates at T12. There is a 3.8 cm simple cyst within the upper pole of the right kidney. Follow-up is not routinely p erformed for simple cysts. There is a 3 mm nonobstructing stone within the right kidney. There is a s igmoid colon surgical anastomosis, partially included on the [id number]. The uterus is absent. The re is partial visualization of a right hip arthroplasty. There is vacuum phenomenon involving the sac roiliac joints. At L1-L2, there is a posterior central to right paracentral disc protrusion. There is minimal central canal stenosis. At L2-L3, there is a mild disc bulge. There is no stenosis. At L3-L4, there is a mild disc bulge. There is mild to moderate left facet arthropathy. There is mini mal central canal stenosis. At L4-L5, there are right hemilaminectomy and suspected microdiscectomy changes. There is effacement of the right lateral recess and neural foramen due to a suspected disc protrusion with slight superio r extrusion and osteophyte complex. The possibility of superimposed scar/granulation tissue along the disc margin at this location is not excluded given a history of prior surgery. These findings are romano perimposed on a moderate disc bulge and endplate osteophytosis. There is mild left facet arthropathy. There is moderate to severe right foraminal stenosis with abutment of the exiting right L4 nerve vlad t. There is mild narrowing of the right lateral recess. At L5-S1, there is a rudimentary disc at this level. There are bilateral lateral recess to extra fora mary disc osteophyte complexes superimposed on endplate remodeling. There is mild left foraminal mor nosis with facet abutment the exiting left L5 nerve root. IMPRESSION: 1. L4-L5: Right lateral recess to extra foraminal disc protrusion with slight extrusion and osteophyt e complex superimposed on a disc bulge and endplate osteophytosis, resulting in moderate to severe ri ght foraminal stenosis with abutment of the exiting right L4 nerve root and mild narrowing of the rig ht lateral recess. There may be superimposed scar/granulation tissue along the right lateral recess a t this level due to right hemilaminectomy and suspected microdiscectomy changes. 2. Mild degenerative change throughout the remainder of the lumbar spine, described in detail above. 3. Mild scoliosis. Electronically signed by: Danae Garcia MD (02/14/2021 10:41 AM) [id number]
== END | disposition home or self-care (01) ==
LOC: RAD 09:59
PROVIDERS: ATTEND Neurological Surgery
DX: M54.16 Radiculopathy, lumbar region (principal); M48.061 Spinal stenosis, lumbar region without neurogenic claudication; M25.78 Osteophyte, vertebrae; J45.909 Unspecified asthma, uncomplicated; K21.9 Gastro-esophageal reflux disease without esophagitis; M06.9 Rheumatoid arthritis, unspecified; Z87.891 Personal history of nicotine dependence; Z90.710 Acquired absence of both cervix and uterus; Z98.890 Other specified postprocedural states; Z79.899 Other long term (current) drug therapy; Z88.0 Allergy status to penicillin; Z88.5 Allergy status to narcotic agent; Z88.8 Allergy status to other drugs, medicaments and biological substances
CPT/HCPCS: 62304; 72132; J3490; Q9965

== ENCOUNTER → 2021-11-04 | Outpatient (CLI) | payer MEDICARE ==
[~2021-11-04] MED LIST changes: +BARIUM SULFATE 340 GM SUSPENSION. PO ONE; +BARIUM SULFATE 60% 355 ML SUSP PO ONE; +BARIUM SULFATE 700 MG TABLET PO ONE; -CONTRAST GIVEN. MC PRN; -IOHEXOL 180 MG/ML 10 ML VIAL. IJ ONE; -LIDOCAINE 1% Multi-Dose 20 ML VIAL. INJ ONE; +SIMETHICONE/SOD BICARB/CITRIC ACID PACKET. PO ONE; +TIZA-75 PO; -TIZA4TAB2 PO
--- NOTE | 2021-11-04 10:31 | RAD ---
Procedure: XR Esophagram Comparison: None. Indication: Reason: DYSPHAGIA, [place] TIME =1.6 MIN TECHNIQUE: Single contrast esophagram was performed with fluoroscopy and multiple spot images obtained during sw allowing of barium and transit through the esophagus into the proximal stomach. Findings: Swallowing was performed without difficulty. Contrast passes through the esophagus into the stomach w ithout obstruction. No focal masses or mucosal lesions or ulcerations are identified. No significant external mass impressions. No reflux was observed during the examination. A 13 mm barium pelvic passe d through the esophagus without obstruction. Impression: Unremarkable esophagram. Electronically signed by: Cheikh Villarreal DO (11/04/2021 10:28 AM) [id number]
== END ==
LOC: RAD 08:28
PROVIDERS: ATTEND Internal Medicine Gastroenterology
DX: R13.10 Dysphagia, unspecified (principal)
CPT/HCPCS: 74220